=== PATIENT | male | born 1940 | race Caucasian/White ===

== ENCOUNTER → 2019-01-15 | Outpatient (CLI) | payer MEDICARE, BC | LOC: LABWHC1 10:37 | PROVIDERS: ATTEND Urology | DX: R97.20 Elevated prostate specific antigen [PSA] (principal) | CPT/HCPCS: 36415; 84153 ==

== ENCOUNTER 2022-09-17 22:28 | Emergency (ER) | payer MEDICARE, BC ==
[2022-09-17 22:42] VITALS: RESP 16; TEMP 97.1
[2022-09-17] MEDS ORDERED: DIPH,PERTUS(ACELL)TETVAC-LF 0.5 ML VIAL IM ONE (22:56)
[2022-09-17] MEDS ORDERED: LIDOCAINE 2%-EPI 1:100,000 20 ML VIAL SQ STA (22:56)
--- NOTE | 2022-09-17 23:06 | ED ---
General Adult HPI - General Chief complaint: Fall Stated complaint: FALL WITH HEAD INJURY Time Seen by Provider: 09/17/22 22:30 Source: patient Limitations: no limitations - History of Present Illness Initial comments: Dictation was produced using [employer] dictation software. please excuse any grammatical, word or spelling errors. Chief Complaint: 82-year-old male with past medical history of neuropathy presents emergency department after fall and head laceration History of Present Illness:. Patient is an 82-year-old male brought in by EMS. Patient's history of neuropathy. He states that he has chronic unsteady gait. States that he lost his balance causing fall. He did hit his head. Denies any loss of consciousness. Patient denies history of anticoagulation use. Denies any headache. The ROS documented in this emergency department record has been reviewed and confirmed by me. Those systems with pertinent positive or negative responses have been documented in the HPI. All other systems are other negative and/or noncontributory. - Related Data Allergies Allergy/AdvReac Type Severity Reaction Status Date / Time No Known Allergies Allergy Verified 09/17/22 22:35 Review of Systems ROS Statement: Those systems with pertinent positive or pertinent negative responses have been documented in the HPI. ROS Other: All systems not noted in ROS Statement are negative. Past Medical History Past Medical History: Prostate Disorder Additional Past Medical History / Comment(s): neuropathy History of Any Multi-Drug Resistant Organisms: None Reported Past Surgical History: No Surgical Hx Reported Past Psychological History: No Psychological Hx Reported Smoking Status: Never smoker Past Alcohol Use History: Occasional Past Drug Use History: None Reported General Exam - General Exam Comments Initial Comments: PHYSICAL EXAM: General Impression: Alert and oriented x3, not in acute distress HEENT: 2 cm laceration to the right eyebrow, extra-ocular movements intact, pupils equal and reactive to light bilaterally, mucous membranes moist. Cardiovascular: Heart regular rate and rhythm Chest: Able to complete full sentences, no retractions, no tachypnea Abdomen: abdomen soft, non-tender, non-distended, no organomegaly Musculoskeletal: Pulses present and equal in all extremities, no peripheral edema Motor: no focal deficits noted Neurological: CN II-XII grossly intact, no focal motor or sensory deficits noted Skin: Intact with no visualized rashes Psych: Normal affect and mood Limitations: no limitations Course Vital Signs 09/17/22 09/17/2223 22:33 22:36 23:00 Temperature 97.1 F L Pulse Rate 78 77 80 Respiratory 18 16 16 Rate Blood Pressure 123/61 123/61 O2 Sat by Pulse 96 98 97 Oximetry 09/18/22 09/18/22 00:00 01:00 Temperature Pulse Rate 81 85 Respiratory 16 16 Rate Blood Pressure 121/61 O2 Sat by Pulse 95 94 L Oximetry Procedures - Laceration Laceration #1 Consent Obtained: verbal consent Indication: laceration Site: face Description: linear Depth: simple, single layer Anesthetic Used: lidocaine 2%, with epi Anesthesia Technique: local infiltration Pre-repair: wound explored, deep structures intact Type of Sutures: nylon Size of Sutures: 5-0 (3 cm) Technique: simple, interrupted Patient Tolerated Procedure: well Medical Decision Making - Medical Decision Making Was pt. sent in by a medical professional or institution ([facility], SURGERY NURSE, urgent care, hospital, or retirement...) When possible be specific @ -No Did you speak to anyone other than the patient for history (EMS, parent, family, police, friend...)? What history was obtained from this source @ -No Did you review nursing and triage notes (agree or disagree)? Why? @ -I reviewed and agree with nursing and triage notes Were old charts reviewed (outside hosp., previous admission, EMS record, old EKG, old radiological studies, urgent care reports/EKG's, retirement records)? Report findings @ -No old charts were reviewed Differential Diagnosis (chest pain, altered mental status, abdominal pain women, abdominal pain men, vaginal bleeding, musculoskeletal, weakness, fever, dyspnea, syncope, headache, dizziness, GI bleed, back pain, seizure, CVA, palpatations, mental health)? @ -Head injury, skull fracture, cranial bleed, facial fracture EKG interpreted by me (3pts min.). @ -IMy EKG interpretation: Ventricular rate 76, sinus rhythm,. 179, QRS 76, QTC 441. No TX prolongation, no QTC prolongation, no ST or T-wave changes noted. Overall, this EKG is unremarkable X-rays interpreted by me (1pt min.). @ -Chest x-ray and pelvis x-ray unremarkable CT interpreted by me (1pt min.). @ -Computed tomography scan of the head and C-spine shows no acute processes U/S interpreted by me (1pt. min.). @ -None done What testing was considered but not performed or refused? (CT, X-rays, U/S, labs)? Why? @ -None What meds were considered but not given or refused? Why? @ -None Did you discuss the management of the patient with other professionals (professionals i.e. Dr., PA, SURGERY NURSE, lab, RT, psych nurse, social service assistant, applications consultant, teacher, railway patrol officer, behavioral health case manager)? Give summary @ -No Was smoking cessation discussed for >3mins.? @ -No Was critical care preformed (if so, how long)? @ -No Were there social determinants of health that impacted care today? How? (Homelessness, low income, unemployed, alcoholism, drug addiction, transportation, low edu. Level, literacy, decrease access to med. care, snf, rehab)? @ -No Was there de-escalation of care discussed even if they declined (Discuss DNR or withdrawal of care, Hospice)? DNR status @ -No What co-morbidities impacted this encounter? (DM, HTN, Smoking, COPD, CAD, Cancer, CVA, ARF, Chemo, Hep., AIDS, mental health diagnosis, sleep apnea, morbid obesity)? @ -None Was patient admitted / discharged? Hospital course, mention meds given and route, prescriptions, significant lab abnormalities, going to OR and other pertinent info. @ -See above Undiagnosed new problem with uncertain prognosis? @ -No Drug Therapy requiring intensive monitoring for toxicity (Heparin, Nitro, Insulin, Cardizem)? @ -No Were any procedures done? @ -Laceration repair, see above for further detail Diagnosis/symptom? Acute, or Chronic, or Acute on Chronic? Uncomplicated (without systemic symptoms) or Complicated (systemic symptoms)? @ -82-year-old male presents to the emergency department after mechanical fall. Laceration. Bedside. Vital signs stable. Patient denies any cardiac history. CT imaging and x-rays are unremarkable. Patient discharged Side effects of treatment? @ -No Exacerbation, Progression, or Severe Exacerbation? @ -No Poses a threat to life or bodily function? How? (Chest pain, USA, PA, pneumonia, PE, COPD, DKA, ARF, appy, cholecystitis, CVA, Diverticulitis, Homicidal, Suicidal, threat to staff... and all critical care pts) @ -No Disposition Clinical Impression: Fall, Facial laceration Disposition: HOME SELF-CARE Condition: Good Instructions (If sedation given, give patient instructions): Fall Prevention for Older Adults (ED) Additional Instructions: stitches removal in 5 days Is patient prescribed a controlled substance at d/c from ED?: No Referrals: Tj Grijalva MD [Primary Care Provider] - 1-2 days
--- NOTE | 2022-09-18 03:13 | CT ---
EXAM: CT Head Without Intravenous Contrast CLINICAL HISTORY: ITS.REASON CT Reason: fall TECHNIQUE: Axial computed tomography images of the head/brain without intravenous contrast. CTDI is 45.2 mGy and DLP is 765 mGy-cm. This CT exam was performed using one or more of the following dose reduction techniques: automated exposure control, adjustment of the mA and/or kV according to patient size, and/or use of iterative reconstruction technique. COMPARISON: No relevant prior studies available. FINDINGS: Brain: Mild periventricular white matter changes, likely related to microangiopathy. No hemorrhage. Ventricles: Unremarkable. No ventriculomegaly. Bones/joints: Unremarkable. No acute fracture. Soft tissues: Unremarkable. Sinuses: Thickening of bilateral maxillary sinuses and left frontal sinus. Mastoid air cells: Unremarkable as visualized. No mastoid effusion. IMPRESSION: Mild periventricular white matter changes, likely related to microangiopathy. EXAM: CT Cervical Spine Without Intravenous Contrast CLINICAL HISTORY: ITS.REASON CT Reason: fall TECHNIQUE: Axial computed tomography images of the cervical spine without intravenous contrast. CTDI is 13.9 mGy and DLP is 765 mGy-cm. This CT exam was performed using one or more of the following dose reduction techniques: automated exposure control, adjustment of the mA and/or kV according to patient size, and/or use of iterative reconstruction technique. COMPARISON: No relevant prior studies available. FINDINGS: Vertebrae: Unremarkable. No acute fracture. Normal alignment of the cervical spine with preservation of vertebral body heights. Discs/spinal canal/neural foramina: Multilevel degenerative disc disease without significant bony spinal canal stenosis at any cervical level. Soft tissues: Unremarkable. IMPRESSION: No acute fracture or dislocation of the cervical spine.
--- NOTE | 2022-09-18 03:42 | XR ---
EXAM: XR Chest, 1 View CLINICAL HISTORY: ITS.REASON XR Reason: fall TECHNIQUE: Frontal view of the chest. COMPARISON: No relevant prior studies available. FINDINGS: Lungs: Unremarkable. No consolidation. Pleural space: Unremarkable. No pneumothorax. No pleural effusions. Heart: Unremarkable. No cardiomegaly. Mediastinum: Unremarkable. Bones/joints: No acute osseous abnormalities. IMPRESSION: No acute cardiopulmonary disease.
--- NOTE | 2022-09-18 03:55 | XR ---
EXAM: XR Pelvis, 1 or 2 Views CLINICAL HISTORY: ITS.REASON XR Reason: fall TECHNIQUE: Frontal view of the pelvis. COMPARISON: No relevant prior studies available. FINDINGS: Bones/joints: No acute osseous abnormalities. Soft tissues: Unremarkable. IMPRESSION: No acute bony pelvic injury.
[2022-09-18 05:36] VITALS: BP 114/72; PULSE 80
== END 2022-09-18 04:12 | disposition home or self-care (01) ==
LOC: EC 22:28
DX: S01.81XA Laceration without foreign body of other part of head, initial encounter (principal); W01.0XXA Fall on same level from slipping, tripping and stumbling without subsequent striking against object, initial encounter
CPT/HCPCS: 12011; 70450; 71045; 72125; 72170; 93005; 99284

== ENCOUNTER 2024-03-07 06:43 | Emergency (ER) | payer MEDICARE, BC ==
[2024-03-07 06:53] VITALS: TEMP 98.6
--- NOTE | 2024-03-07 07:11 | ED ---
Male Urogenital HPI - General Chief complaint: Urogenital Stated complaint: Unable To Urinate Time Seen by Provider: 03/07/24 06:47 Source: patient, family, RN notes reviewed Mode of arrival: wheelchair Limitations: no limitations - History of Present Illness Initial comments: 83-year-old male presents emergency department chief complaint of unable to ur inate. Patient states he had some dribbling throughout the night but states he feels very distended and feels like he has to urinate. He states he had this happen approximate 1 year ago did see his urologist Dr. Quinn who placed him on Flomax after catheter placement he is currently on Flomax he has had no prior dysuria to this. He denies any fevers chills no flank pain no other complaints - Related Data Allergies Allergy/AdvReac Type Severity Reaction Status Date / Time No Known Allergies Allergy Verified 03/07/24 06:53 Review of Systems ROS Statement: Those systems with pertinent positive or pertinent negative responses have been documented in the HPI. ROS Other: All systems not noted in ROS Statement are negative. Past Medical History Past Medical History: Prostate Disorder Additional Past Medical History / Comment(s): neuropathy History of Any Multi-Drug Resistant Organisms: None Reported Past Surgical History: No Surgical Hx Reported Past Psychological History: No Psychological Hx Reported Smoking Status: Never smoker Past Alcohol Use History: Occasional Past Drug Use History: None Reported General Exam Limitations: no limitations General appearance: alert, in no apparent distress Head exam: Present: atraumatic, normocephalic, normal inspection Respiratory exam: Present: normal lung sounds bilaterally. Absent: respiratory distress, wheezes, rales, rhonchi, stridor Cardiovascular Exam: Present: regular rate, normal rhythm, normal heart sounds. Absent: systolic murmur, diastolic murmur, rubs, gallop, clicks GI/Abdominal exam: Present: soft, tenderness, normal bowel sounds. Absent: distended, guarding, rebound, rigid Course Vital Signs 03/07/24 03/07/24 06:52 08:36 Temperature 98.6 F 98.6 F Pulse Rate 99 84 Respiratory 18 16 Rate Blood Pressure 159/81 143/68 O2 Sat by Pulse 99 99 Oximetry Medical Decision Making - Medical Decision Making Was pt. sent in by a medical professional or institution (, PA, RESTAURANT HOSTESS, urgent care, hospital, or senior living...) When possible be specific @ -No Did you speak to anyone other than the patient for history (EMS, parent, family, police, friend...)? What history was obtained from this source @ -No Did you review nursing and triage notes (agree or disagree)? Why? @ -I reviewed and agree with nursing and triage notes Were old charts reviewed (outside hosp., previous admission, EMS record, old EKG, old radiological studies, urgent care reports/EKG's, senior living records)? Report findings @ -No old charts were reviewed Differential Diagnosis (chest pain, altered mental status, abdominal pain women, abdominal pain men, vaginal bleeding, weakness, fever, dyspnea, syncope, headache, dizziness, GI bleed, back pain, seizure, CVA, palpatations, mental health, musculoskeletal)? @ -UTI, BPH, urinary retention EKG interpreted by me (3pts min.). @ -None X-rays interpreted by me (1pt min.). @ -None done CT interpreted by me (1pt min.). @ -None done U/S interpreted by me (1pt. min.). @ -None done What testing was considered but not performed or refused? (CT, X-rays, U/S, labs)? Why? @ -None What meds were considered but not given or refused? Why? @ -None Did you discuss the management of the patient with other professionals (professionals i.e. , PA, RESTAURANT HOSTESS, lab, RT, psych nurse, home health care social worker, mask inspector, teacher, airframe technical officer, case coordinator)? Give summary @ -No Was smoking cessation discussed for >3mins.? @ -No Was critical care preformed (if so, how long)? @ -No Were there social determinants of health that impacted care today? How? (Homelessness, low income, unemployed, alcoholism, drug addiction, transportation, low edu. Level, literacy, decrease access to med. care, residential, rehab)? @ -No Was there de-escalation of care discussed even if they declined (Discuss DNR or withdrawal of care, Hospice)? DNR status @ -No What co-morbidities impacted this encounter? (DM, HTN, Smoking, COPD, CAD, Cancer, CVA, ARF, Chemo, Hep., AIDS, mental health diagnosis, sleep apnea, morbid obesity)? @ -None Was patient admitted / discharged? Hospital course, mention meds given and route, prescriptions, significant lab abnormalities, going to OR and other pertinent info. @ -Charge patient had Minor catheter placed patient feels greatly improved patient will be discharged with follow-up to urology patient has no evidence of UTI patient is currently on Flomax. Undiagnosed new problem with uncertain prognosis? @ -No Drug Therapy requiring intensive monitoring for toxicity (Heparin, Nitro, Insulin, Cardizem)? @ -No Were any procedures done? @ -No Diagnosis/symptom? @ -Urinary retention Acute, or Chronic, or Acute on Chronic? @ -Acute Uncomplicated (without systemic symptoms) or Complicated (systemic symptoms)? @ -Uncomplicated Side effects of treatment? @ -No Exacerbation, Progression, or Severe Exacerbation? @ -No Poses a threat to life or bodily function? How? (Chest pain, USA, MS, pneumonia, PE, COPD, DKA, ARF, appy, cholecystitis, CVA, Diverticulitis, Homicidal, Suicidal, threat to staff... and all critical care pts) @ -No - Lab Data Lab Results 03/07/24 Range/Units 07:23 Urine Color Colorless Urine Appearance Clear (Clear) Urine pH 5.5 (5.0-8.0) Ur Specific [place] 1.005 (1.001-1.035) Urine Protein Negative (Negative) Urine Glucose (UA) Negative (Negative) Urine Ketones Negative (Negative) Urine Blood Negative (Negative) Urine Nitrite Negative (Negative) Urine Bilirubin Negative (Negative) Urine Urobilinogen <2.0 (<2.0) mg/dL Ur Leukocyte Esterase Negative (Negative) Disposition Clinical Impression: Urinary retention Disposition: HOME SELF-CARE Condition: Stable Instructions (If sedation given, give patient instructions): Urinary Retention in Men (ED) Additional Instructions: Please return to the Emergency Department if symptoms worsen or any other concerns. Is patient prescribed a controlled substance at d/c from ED?: No Referrals: Tj Grijalva MD [Primary Care Provider] - 1-2 days David Quinn MD [STAFF PHYSICIAN] - 1-2 days Time of Disposition: 08:17
[2024-03-07 07:50] LABS: Appearance,Urine Clear (Clear); Bilirubin,Urine Negative (Negative); Blood,Urine Negative (Negative); Color,Urine Colorless; Glucose,Urine (UA) Negative (Negative); Ketones,Urine Negative (Negative); Leukocyte Esterase,Urine Negative (Negative); Nitrite,Urine Negative (Negative); PH, Urine 5.5 (5.0-8.0); Protein,Urine Negative (Negative); Specific Gravity,Urine 1.005 (1.001-1.035); Urobilinogen,Urine <2.0 mg/dL (<2.0)
[2024-03-07 08:39] VITALS: BP 143/68; PULSE 84; RESP 16
== END 2024-03-07 08:37 | disposition home or self-care (01) ==
LOC: EC 06:43
DX: R33.9 Retention of urine, unspecified (principal)
CPT/HCPCS: 51702; 81003; 99283

== ENCOUNTER 2024-03-24 17:46 | Emergency (ER) | payer MEDICARE, BC ==
[2024-03-24 17:54] VITALS: RESP 18; TEMP 97.4
--- NOTE | 2024-03-24 18:57 | ED ---
Male Urogenital HPI - General Source: patient, RN notes reviewed Mode of arrival: wheelchair Limitations: no limitations - History of Present Illness Onset/Timin -: days(s) <Salazar Mancini - Last Filed: 03/24/24 18:56> - General Source: patient, family (daughter), RN notes reviewed, old records reviewed Mode of arrival: wheelchair Limitations: no limitations <Dori Ramirez - Last Filed: 03/24/24 20:38> - General Chief complaint: Urogenital Stated complaint: Urogenital Time Seen by Provider: 03/24/24 17:59 - History of Present Illness Initial comments: Quick note: This is an 83-year-old male presenting with urinary retention since earlier today. Patient states he had a Minor catheter placed 3 weeks ago. States he had seen Dr. El earlier who advised to keep catheter in place. States catheter was later removed this morning. States he has been unable to urinate since that time with associated lower abdominal discomfort. Patient denies other symptoms. (Salazar Mancini) 83-year-old male presented to ER for evaluation of urinary retention. Daughter, at bedside, aiding in HPI and past medical history.Patient seen here on 03-07-2024 and diagnosed with urinary retention Minor was placed at that time. Patient followed up with Dr. Quinn today and had Minor catheter removed. Daughter, at bedside, states that patient has an enlarged prostate. Since Minor catheter removal patient has not been able to urinate. He states he will dribble with no complete emptying of bladder. He is reporting super pubic abdominal discomfort and pressure. He denies any fevers, chills, nausea, vomiting, constipation/diarrhea, peripheral edema, chest pain, shortness of breath or other complaints. (Dori Ramirez) - Related Data Allergies Allergy/AdvReac Type Severity Reaction Status Date / Time No Known Allergies Allergy Verified 03/07/24 06:53 Review of Systems ROS Other: All systems not noted in ROS Statement are negative. <Salazar Mancini - Last Filed: 03/24/24 18:56> ROS Other: All systems not noted in ROS Statement are negative. <Dori Ramirez - Last Filed: 03/24/24 20:38> ROS Statement: Those systems with pertinent positive or pertinent negative responses have been documented in the HPI. Past Medical History Past Medical History: Prostate Disorder Additional Past Medical History / Comment(s): neuropathy History of Any Multi-Drug Resistant Organisms: None Reported Past Surgical History: No Surgical Hx Reported Past Psychological History: No Psychological Hx Reported Smoking Status: Never smoker Past Alcohol Use History: Occasional Past Drug Use History: None Reported <Salazar Mancini - Last Filed: 03/24/24 18:56> General Exam Limitations: no limitations <Salazar Mancini - Last Filed: 03/24/24 18:56> Limitations: language barrier (Hard of hearing) General appearance: alert, in no apparent distress Respiratory exam: Present: normal lung sounds bilaterally. Absent: respiratory distress, wheezes, rales, rhonchi, stridor Cardiovascular Exam: Present: regular rate, normal rhythm, normal heart sounds. Absent: systolic murmur, diastolic murmur, rubs, gallop, clicks GI/Abdominal exam: Present: soft, tenderness (Suprapubic), normal bowel sounds Extremities exam: Present: normal inspection, full ROM, normal capillary refill. Absent: tenderness, pedal edema, joint swelling, calf tenderness Neurological exam: Present: alert, oriented X3, CN II-XII intact Skin exam: Present: warm, dry, intact, normal color. Absent: rash <Dori Ramirez - Last Filed: 03/24/24 20:38> - General Exam Comments Initial Comments: Visual Physical Exam Vital signs reviewed General: Well-appearing, nontoxic, no acute distress. Patient seated in wheelchair. Head: Normocephalic, atraumatic Eyes: PERRLA, EOMI ENT: Airway patent Chest: Nonlabored breathing Skin: No visual rash, normal skin tone Neuro: Alert and oriented 3 Musculoskeletal: No gross abnormalities (Salazar Mancini) Course <Dori Ramirez - Last Filed: 03/24/24 20:38> Vital Signs 03/24/24 17:51 Temperature 97.4 F L Pulse Rate 76 Respiratory 18 Rate Blood Pressure 106/56 O2 Sat by Pulse 97 Oximetry - Reevaluation(s) Reevaluation #1: 03/24/24 20:10 Prevoid bladder scan 916. (Dori Ramirez) Medical Decision Making <Salazar Mancini - Last Filed: 03/24/24 18:56> <Dori Ramirez - Last Filed: 03/24/24 20:38> - Medical Decision Making I completed the quick note portion of this chart signed CHASTITY Ritter (Salazar Mancini) Was pt. sent in by a medical professional or institution ([facility] Bass, CLEAR COAT SPRAYER, urgent care, hospital, or alf...) When possible be specific @ -No Did you speak to anyone other than the patient for history (EMS, parent, family, police, friend...)? What history was obtained from this source @ -Daughter, aiding in HPI and past medical history. Did you review nursing and triage notes (agree or disagree)? Why? @ -I reviewed and agree with nursing and triage notes Were old charts reviewed (outside hosp., previous admission, EMS record, old EKG, old radiological studies, urgent care reports/EKG's, alf records)? Report findings @ -Yes, I reviewed ER visit from . Patient seen here for urinary retention and Minor catheter placed and patient instructed to follow-up with urology. Differential Diagnosis (chest pain, altered mental status, abdominal pain women, abdominal pain men, vaginal bleeding, weakness, fever, dyspnea, syncope, headache, dizziness, GI bleed, back pain, seizure, CVA, palpatations, mental health, musculoskeletal)? @ -Differential Abdominal Pain Men:Appendicitis, cholecystitis, diverticulosis, ischemic bowel, pancreatitis, hepatitis, UTI, gastroenteritis, AAA, incarcerated hernia, bowel obstruction, constipation, inflammatory bowel, hepatitis, peptic ulcer disease, splenic infarction, perforated viscus, testicular torsion, this is not meant to be an all-inclusive list EKG interpreted by me (3pts min.). @ -None done] X-rays interpreted by me (1pt min.). @ -None done CT interpreted by me (1pt min.). @ -None done U/S interpreted by me (1pt. min.). @ -None done What testing was considered but not performed or refused? (CT, X-rays, U/S, labs)? Why? @ -None What meds were considered but not given or refused? Why? @ -None Did you discuss the management of the patient with other professionals (professionals i.e. Dr., PA, CLEAR COAT SPRAYER, lab, RT, psych nurse, social sciences chair, director machine, teacher, community service officer, case briefer)? Give summary @ -No Was smoking cessation discussed for >3mins.? @ -No Was critical care preformed (if so, how long)? @ -No Were there social determinants of health that impacted care today? How? (Homelessness, low income, unemployed, alcoholism, drug addiction, transportation, low edu. Level, literacy, decrease access to med. care, fpc, rehab)? @ -No Was there de-escalation of care discussed even if they declined (Discuss DNR or withdrawal of care, Hospice)? DNR status @ -No What co-morbidities impacted this encounter? (DM, HTN, Smoking, COPD, CAD, Cancer, CVA, ARF, Chemo, Hep., AIDS, mental health diagnosis, sleep apnea, morbid obesity)? @ -Urinary retention Was patient admitted / discharged? Hospital course, mention meds given and route, prescriptions, significant lab abnormalities, going to OR and other pertinent info. @ -Discharge. 83-year-old male presenting to the ER for evaluation of urinary retention. Patient had Minor catheter removed by Dr. Quinn earlier today. Upon rooming, hstory and physical exam completed. Vitals stable. There is tendern ess to suprapubic region. Exam otherwise benign. Prevoid bladder scan at 916 mL. Minor catheter placed at that time with approximately 900 mL of output. Urinalysis unremarkable without evidence of infection. Upon reevaluation, patient reported improvement of discomfort and is stable for discharge. Patient will be discharged with Minor catheter in place and instructed to follow-up with urology outpatient. Strict return parameters discussed. Patient discharged in stable condition with follow-up to PCP. Patient verbally expressed understanding and agreement with care plan. Case discussed with ED attending, Dr. Tan. Undiagnosed new problem with uncertain prognosis? @ -No Drug Therapy requiring intensive monitoring for toxicity (Heparin, Nitro, Insulin, Cardizem)? @ -No Were any procedures done? @ -No Diagnosis/symptom? @ -Urinary retention Acute, or Chronic, or Acute on Chronic? @ -Acute Uncomplicated (without systemic symptoms) or Complicated (systemic symptoms)? @ -Uncomplicated Side effects of treatment? @ -No Exacerbation, Progression, or Severe Exacerbation? @ -No Poses a threat to life or bodily function? How? (Chest pain, [place], [place], pneumonia, PE, COPD, DKA, ARF, appy, cholecystitis, CVA, Diverticulitis, Homicidal, Suicidal, threat to staff... and all critical care pts) @ -No (Dori Ramirez) Disposition <Salazar Mancini - Last Filed: 03/24/24 18:56> Is patient prescribed a controlled substance at d/c from ED?: No Time of Disposition: 20:33 <Dori Ramirez - Last Filed: 03/24/24 20:38> Clinical Impression: Urinary retention Disposition: HOME SELF-CARE Condition: Stable Instructions (If sedation given, give patient instructions): Urinary Retention in Men (ED) Additional Instructions: Follow-up with Dr. Quinn, urology. Return to the ER for any new or worsening symptoms. Referrals: Tj Grijalva MD [Primary Care Provider] - 1-2 days David Quinn MD [STAFF PHYSICIAN] - 1-2 days
[2024-03-24 21:10] VITALS: BP 145/73; PULSE 78
[2024-03-24 21:16] LABS: Amorphous Sediment,Urine Rare /hpf; Appearance,Urine Clear (Clear); Bacteria,Urine Rare /hpf; Bilirubin,Urine Negative (Negative); Blood,Urine Moderate (Negative); Color,Urine Colorless; Glucose,Urine (UA) Negative (Negative); Ketones,Urine Negative (Negative); Leukocyte Esterase,Urine Small (Negative); Nitrite,Urine Negative (Negative); PH, Urine 5.5 (5.0-8.0); Protein,Urine Negative (Negative); RBC,Urine 10 /hpf (0-5); Specific Gravity,Urine 1.004 (1.001-1.035); Urobilinogen,Urine <2.0 mg/dL (<2.0); WBC,Urine 7 /hpf (0-5)
== END 2024-03-24 20:59 | disposition home or self-care (01) ==
LOC: EC 17:46
DX: R33.9 Retention of urine, unspecified (principal)
CPT/HCPCS: 51702; 81001; 99284

== ENCOUNTER 2024-03-26 03:55 | Emergency (ER) | payer MEDICARE, BC ==
[2024-03-26 04:07] VITALS: TEMP 98
--- NOTE | 2024-03-26 04:08 | ED ---
Male Urogenital HPI - General Chief complaint: Urogenital Stated complaint: Unable to urinate Time Seen by Provider: 03/26/24 04:06 Source: patient, RN notes reviewed, old records reviewed, Caregiver Mode of arrival: wheelchair Limitations: no limitations - History of Present Illness Initial comments: This is an 83-year-old male to the ER for evaluation of recurrent urinary retention with pain. Indwelling Minor catheter and some increasing pain and decreased output MD Complaint: dysuria -: days(s) Location: penis Radiation: none Severity: mild Quality: burning Consistency: constant Improves with: none Worsens with: none indwelling catheter Reports: denies other symptoms - Related Data Previous Rx's Medication Instructions Recorded Cephalexin [Keflex] 500 mg PO TID #20 cap 03/26/24 Allergies Allergy/AdvReac Type Severity Reaction Status Date / Time No Known Allergies Allergy Verified 03/07/24 06:53 Review of Systems ROS Statement: Those systems with pertinent positive or pertinent negative responses have been documented in the HPI. ROS Other: All systems not noted in ROS Statement are negative. Past Medical History Past Medical History: Prostate Disorder Additional Past Medical History / Comment(s): neuropathy History of Any Multi-Drug Resistant Organisms: None Reported Past Surgical History: No Surgical Hx Reported Past Psychological History: No Psychological Hx Reported Smoking Status: Never smoker Past Alcohol Use History: Occasional Past Drug Use History: None Reported General Exam Limitations: no limitations General appearance: alert, in no apparent distress Head exam: Present: atraumatic, normocephalic, normal inspection Eye exam: Present: normal appearance, PERRL, EOMI. Absent: scleral icterus, conjunctival injection, periorbital swelling ENT exam: Present: normal exam, mucous membranes moist Neck exam: Present: normal inspection. Absent: tenderness, meningismus, lymphadenopathy Respiratory exam: Present: normal lung sounds bilaterally. Absent: respiratory distress, wheezes, rales, rhonchi, stridor Cardiovascular Exam: Present: regular rate, normal rhythm, normal heart sounds. Absent: systolic murmur, diastolic murmur, rubs, gallop, clicks GI/Abdominal exam: Present: soft, normal bowel sounds. Absent: distended, tenderness, guarding, rebound, rigid Extremities exam: Present: normal inspection, full ROM, normal capillary refill. Absent: tenderness, pedal edema, joint swelling, calf tenderness Back exam: Present: normal inspection Neurological exam: Present: alert, oriented X3, CN II-XII intact Psychiatric exam: Present: normal affect, normal mood Skin exam: Present: warm, dry, intact, normal color. Absent: rash Course Vital Signs 03/26/24 03/26/24 04:02 05:25 Temperature 98 F Pulse Rate 100 88 Respiratory 20 16 Rate Blood Pressure 141/79 131/78 O2 Sat by Pulse 96 99 Oximetry - Reevaluation(s) Reevaluation #1: Medical records reviewed Reevaluation #2: Patient symptoms improved Reevaluation #3: Patient informed of results questions answered Reevaluation #4: Was pt. sent in by a medical professional or institution (, [facility], DISASTER RECOVERY ANALYST, urgent care, hospital, or retirement...) When possible be specific @ -no Did you speak to anyone other than the patient for history (EMS, parent, family, police, friend...)? What history was obtained from this source @ -no Did you review nursing and triage notes (agree or disagree)? Why? @ -agree Are old charts reviewed (outside hosp., previous admission, EMS record, old EKG, old radiological studies, urgent care reports/EKG's, retirement records)? Report findings @ -yes Differential Diagnosis (chest pain, altered mental status, abdominal pain women, abdominal pain men, vaginal bleeding, weakness, fever, dyspnea, syncope, headache, dizziness, GI bleed, back pain, seizure, CVA, palpatations, mental health, musculoskeletal)? @ -prior EKG interpreted by me (3pts min.). @ - no X-rays interpreted by me (1pt min.). @ -no CT interpreted by me (1pt min.). @ -no U/S interpreted by me (1pt. min.). @ -no What testing was considered but not performed or refused? (CT, X-rays, U/S, labs)? Why? @ -none What meds were considered but not given or refused? Why? @ -none Did you discuss the management of the patient with other professionals (professionals i.e. DEMETRI Bass, DISASTER RECOVERY ANALYST, lab, RT, psych nurse, web content & social media manager, milk sampler, teacher, medical laboratory technical officer, case management social worker)? Give summary @ -no Was smoking cessation discussed for >3mins.? @ -no Was critical care preformed (if so, how long)? @ -no Were there social determinants of health that impacted care today? How? (Homelessness, low income, unemployed, alcoholism, drug addiction, transportation, low edu. Level, literacy, decrease access to med. care, fdc, rehab)? @ -none Was there de-escalation of care discussed even if they declined (Discuss DNR or withdrawal of care, Hospice)? DNR status @ -no What co-morbidities impacted this encounter? (DM, HTN, Smoking, COPD, CAD, Cancer, CVA, ARF, Chemo, Hep., AIDS, mental health diagnosis, sleep apnea, morbid obesity)? @ -none Was patient admitted / discharged? Hospital course, mention meds given and route, prescriptions, significant lab abnormalities, going to OR and other pertinent info. @ -83 male with indwelling Minor catheter found to have urinary tract infection, catheter is working appropriate and patient can be discharged home Discharge Undiagnosed new problem with uncertain prognosis? @ -no Drug Therapy requiring intensive monitoring for toxicity (Heparin, Nitro, Insulin, Cardizem)? @ -no Were any procedures done? @ -no Diagnosis/symptom? @ -Urinary retention indwelling Minor catheter UTI Acute, or Chronic, or Acute on Chronic? @ -Acute Uncomplicated (without systemic symptoms) or Complicated (systemic symptoms)? @ -Complicated Side effects of treatment? @ -no Exacerbation, Progression, or Severe Exacerbation? @ -exacerbation Poses a threat to life or bodily function? How? (Chest pain, [place], [place], pneumonia, PE, COPD, DKA, ARF, appy, cholecystitis, CVA, Diverticulitis, Homicidal, Suicidal, threat to staff... and all critical care pts) @ -no Medical Decision Making - Medical Decision Making 83 male with indwelling Minor catheter found to have urinary tract infection, catheter is working appropriate and patient can be discharged home - Lab Data Lab Results 03/26/24 Range/Units 04:30 Urine Color Colorless Urine Appearance Clear (Clear) Urine pH 5.5 (5.0-8.0) Ur Specific Dola 1.005 (1.001-1.035) Urine Protein Negative (Negative) Urine Glucose (UA) Negative (Negative) Urine Ketones Negative (Negative) Urine Blood Large H (Negative) Urine Nitrite Negative (Negative) Urine Bilirubin Negative (Negative) Urine Urobilinogen <2.0 (<2.0) mg/dL Ur Leukocyte Esterase Large H (Negative) Urine RBC 13 H (0-5) /hpf Urine WBC 64 H (0-5) /hpf Ur Squamous Epith Cells <1 (0-4) /hpf Urine Bacteria Many H (None) /hpf Hyaline Casts 1 (0-2) /lpf Urine Mucus Rare H (None) /hpf Disposition Clinical Impression: Urinary retention, Urinary tract infection Disposition: HOME SELF-CARE Condition: Good Instructions (If sedation given, give patient instructions): Urinary Tract Infection in Men (ED) Prescriptions: Cephalexin [Keflex] 500 mg PO TID #20 cap Is patient prescribed a controlled substance at d/c from ED?: No Referrals: Tj Grijalva MD [Primary Care Provider] - 1-2 days Time of Disposition: 05:00
[2024-03-26 04:46] LABS: Appearance,Urine Clear (Clear); Bacteria,Urine Many /hpf; Bilirubin,Urine Negative (Negative); Blood,Urine Large (Negative); Color,Urine Colorless; Glucose,Urine (UA) Negative (Negative); Hyaline Casts,Urine 1 /lpf (0-2); Ketones,Urine Negative (Negative); Leukocyte Esterase,Urine Large (Negative); Mucus,Urine Rare /hpf; Nitrite,Urine Negative (Negative); PH, Urine 5.5 (5.0-8.0); Protein,Urine Negative (Negative); RBC,Urine 13 /hpf (0-5); Specific Gravity,Urine 1.005 (1.001-1.035); Squamous Epithelial Cell,Urine <1 /hpf (0-4); Urobilinogen,Urine <2.0 mg/dL (<2.0); WBC,Urine 64 /hpf (0-5)
[2024-03-26] MEDS: CEPHALEXIN 500 MG CAP PO STA (05:05)
[2024-03-26] MEDS: CEPHALEXIN 500MG STARTER PACK 4 CAP BTL PO STA (05:07)
[2024-03-26 05:28] VITALS: BP 131/78; PULSE 88; RESP 16
== END 2024-03-26 05:28 | disposition home or self-care (01) ==
LOC: EC 03:55
DX: N39.0 Urinary tract infection, site not specified (principal)
CPT/HCPCS: 51702; 81001; 87077; 87086; 87186; 99283